=== PATIENT | female | born 1940 | race Caucasian/White ===

== ENCOUNTER 2024-07-13 11:47 | Inpatient (IN) | payer OTHER, BC ==
[2024-07-13 11:55] VITALS: BMI 29.2
[2024-07-13 12:47] LABS: HEMATOCRIT 38.8 % (34.1-44.9); HEMOGLOBIN 12.3 g/dL (11.2-15.7); MCHC 31.7 g/dl (32.2-35.5); MEAN CELL VOLUME 89.2 fl (79.4-94.8); MEAN PLT VOLUME 10.7 fl (9.4-12.3); PLATELET COUNT 343 x10^3/uL (182-369); RDW 14.5 % (12.5-17.0)
[2024-07-13] MEDS ORDERED: METOPROLOL TARTRATE 5 MG/5 ML VIAL ONE (12:50)
[2024-07-13 12:54] LABS: INR 1.35 (0.83-1.09); PROTHROMBIN TIME (PATIENT) 14.9 SEC (9.7-13.0)
[2024-07-13 12:57] LABS: ACTIVATED PTT 33.3 SECONDS (25.2-36.5)
[2024-07-13] MEDS: METOPROLOL TARTRATE 5 MG/5 ML VIAL IVPUSH ONE (12:57)
[2024-07-13] MEDS ORDERED: metoPROLOL SUCCINATE 25 MG TAB.SR.24H (FP) PO ONE (13:03)
[2024-07-13] MEDS: metoPROLOL SUCCINATE 25 MG TAB.SR.24H (FP) PO ONE (13:06)
[2024-07-13 13:09] LABS: POTASSIUM 3.6 mmol/L (3.5-5.1)
[2024-07-13 13:10] LABS: ALBUMIN 3.6 g/dl (3.4-5.0); BLOOD UREA NITROGEN 18.2 mg/dL (7-18); CALCIUM 9.8 mg/dL (8.5-10.1)
[2024-07-13 13:11] LABS: MAGNESIUM 2.1 mg/dL (1.8-2.4)
[2024-07-13 13:15] LABS: CREATININE 0.8 mg/dL (0.55-1.3)
[2024-07-13 13:16] LABS: BILIRUBIN,TOTAL 0.8 mg/dL (0.2-1); TOT PROT 7.6 g/dl (6.4-8.2)
[2024-07-13 14:43] LABS: HIV INTERPRETATION NEGATIVE (NEGATIVE)
[2024-07-13 14:44] LABS: HCV DIAGNOSTIC IN-HOUSE W/RFLX NON-REACTIVE (NONREACTIVE)
[2024-07-13] MEDS ORDERED: FUROSEMIDE 40 MG/4 ML INJECTABLE VIAL ONE (15:04)
[2024-07-13] MEDS: FUROSEMIDE 40 MG/4 ML INJECTABLE VIAL IVPUSH ONE (15:16)
[2024-07-13 15:41] LABS: POTASSIUM 3.6 mmol/L (3.5-5.1)
[2024-07-13 15:42] LABS: CALCIUM 9.4 mg/dL (8.5-10.1)
[2024-07-13 15:43] LABS: BLOOD UREA NITROGEN 16.2 mg/dL (7-18)
[2024-07-13 15:46] LABS: CREATININE 0.7 mg/dL (0.55-1.3)
[2024-07-13] MEDS ORDERED: METOPROLOL TARTRATE 5 MG/5 ML VIAL IVPUSH PRN (16:54)
[2024-07-13 20:38] LABS: EPI CELLS 3 /uL (0-25.1); HYALINE CASTS 0 /uL (0-3.1); URINE APPEARANCE CLEAR; URINE BACTERIA 6 /uL (0-1359); URINE BILIRUBIN NEGATIVE (NEGATIVE); URINE COLOR YELLOW; URINE GLUCOSE (UA) NEGATIVE (NEGATIVE); URINE KETONE NEGATIVE (NEGATIVE); URINE LEUK ESTERASE TRACE (NEGATIVE); URINE NITRITE NEGATIVE (NEGATIVE); URINE PROTEIN NEGATIVE (NEGATIVE); URINE RBC 17 /uL (0-23.9); URINE UROBILINOGEN 0.2 mg/dL (0.2-1.0); URINE WBC 18 /uL (0-25.8)
[2024-07-13] MEDS: METOPROLOL TARTRATE 50 MG TABLET (FP) PO SCH (21:39)
[2024-07-13] MEDS: MELATONIN 5 MG TABLETS PO PRN (21:40)
[2024-07-13] MEDS: ATORVASTATIN CA 20 MG TABLET (FP) PO SCH (21:40)
[2024-07-13] MEDS: APIXABAN 2.5 MG TABLET PO SCH (21:40)
[2024-07-13] MEDS: PARoxetine HCL 10 MG TABLET PO SCH (23:04)
[2024-07-14 07:46] LABS: HEMOGLOBIN 11.2 g/dL (11.2-15.7); MEAN CELL VOLUME 87.7 fl (79.4-94.8); PLATELET COUNT 307 x10^3/uL (182-369); RDW 14.4 % (12.5-17.0)
[2024-07-14 08:01] LABS: POTASSIUM 3.5 mmol/L (3.5-5.1)
[2024-07-14 08:05] LABS: BLOOD UREA NITROGEN 18.9 mg/dL (7-18); CALCIUM 8.9 mg/dL (8.5-10.1)
[2024-07-14 08:08] LABS: CREATININE 0.7 mg/dL (0.55-1.3)
[2024-07-14] MEDS: METOPROLOL SUCCINATE 100 MG, METOPROLOL SUCCINATE 25 MG PO SCH (09:50)
[2024-07-15 06:57] LABS: POTASSIUM 3.4 mmol/L (3.5-5.1)
[2024-07-15 07:02] LABS: CALCIUM 8.8 mg/dL (8.5-10.1)
[2024-07-15 07:03] LABS: BLOOD UREA NITROGEN 23.8 mg/dL (7-18); MAGNESIUM 1.9 mg/dL (1.8-2.4)
[2024-07-15 07:05] LABS: CREATININE 0.6 mg/dL (0.55-1.3)
[2024-07-15 07:07] LABS: BILIRUBIN,TOTAL 1.1 mg/dL (0.2-1); TOT PROT 6.6 g/dl (6.4-8.2)
[2024-07-15 08:00] LABS: HEMATOCRIT 35.9 % (34.1-44.9); HEMOGLOBIN 11.2 g/dL (11.2-15.7); MCHC 31.2 g/dl (32.2-35.5); MEAN CELL VOLUME 91.3 fl (79.4-94.8); MEAN PLT VOLUME 11.4 fl (9.4-12.3); PLATELET COUNT 257 x10^3/uL (182-369); RDW 14.6 % (12.5-17.0)
[2024-07-15] MEDS: POTASSIUM CHLORIDE ORAL LIQUID 20 MEQ/15 ML PO ONE (08:50)
[2024-07-15] MEDS: FUROSEMIDE 40 MG/4 ML INJECTABLE VIAL IVPUSH ONE (08:53)
[2024-07-15] MEDS ORDERED: METOPROLOL TARTRATE 5 MG/5 ML VIAL IVPUSH PRN ×2 (09:29→13:04)
[2024-07-15] MEDS: MAGNESIUM 2GM/50ML STERILE WATER IVPB IVPB ONE (10:23)
[2024-07-15] MEDS: METOPROLOL TARTRATE 5 MG/5 ML VIAL IVPUSH PRN (14:59)
[2024-07-15] MEDS: metoPROLOL SUCCINATE 25 MG TAB.SR.24H (FP) PO ONE (15:26)
[2024-07-15] MEDS: AMIODARONE HCL 200 MG TABLET PO SCH (19:34)
[2024-07-16 06:52] LABS: POTASSIUM 3.4 mmol/L (3.5-5.1)
[2024-07-16 07:02] LABS: ALBUMIN 2.9 g/dl (3.4-5.0); BLOOD UREA NITROGEN 23.7 mg/dL (7-18); CALCIUM 8.5 mg/dL (8.5-10.1)
[2024-07-16 07:03] LABS: MAGNESIUM 2.4 mg/dL (1.8-2.4)
[2024-07-16 07:05] LABS: CREATININE 0.7 mg/dL (0.55-1.3)
[2024-07-16 07:07] LABS: TOT PROT 6.4 g/dl (6.4-8.2)
[2024-07-16] MEDS: POTASSIUM CHLORIDE ORAL LIQUID 20 MEQ/15 ML PO ONE (08:00)
[2024-07-16] MEDS: POTASSIUM CHLORIDE ORAL LIQUID 20 MEQ/15 ML PO SCH (10:15)
[2024-07-16 10:20] VITALS: RESP 19; TEMP 98.1
[2024-07-16] MEDS: AMIODARONE HCL 200 MG TABLET PO SCH (10:27)
[2024-07-16 13:21] VITALS: BP 118/53; PULSE 98
[2024-07-17] MEDS ORDERED: AMIODARONE HCL 200 MG TABLET PO SCH (10:00)
== END 2024-07-16 16:32 | disposition home or self-care (01) | DRG 291 ==
LOC: JER 11:47 → JERBED 14:35 → J4W 16:17
PROVIDERS: ADMIT Internal Medicine; ATTEND Internal Medicine
DX: I11.0 Hypertensive heart disease with heart failure (principal); I50.33 Acute on chronic diastolic (congestive) heart failure; I48.0 Paroxysmal atrial fibrillation; K21.9 Gastro-esophageal reflux disease without esophagitis; E78.00 Pure hypercholesterolemia, unspecified; R00.0 Tachycardia, unspecified; R00.2 Palpitations; E78.5 Hyperlipidemia, unspecified; F41.9 Anxiety disorder, unspecified; Z95.0 Presence of cardiac pacemaker; Z85.3 Personal history of malignant neoplasm of breast
CPT/HCPCS: 0241U-QW; 36415; 71045-TC-FY; 80048; 80053; 81003; 82550; 82962; 83036; 83735; 83880; 84100; 84439; 84443; 84484; 85027; 85610; 85730; 86803; 87389; 93005; 93010; 93306-TC; 99291